=== PATIENT | male | born 2000 | race African-American/Black ===

== ENCOUNTER 2024-12-30 19:37 | Emergency (ER) | payer BC, SELFPAY ==
--- NOTE | ~2024-12-30 | XR_ITS ---
CLINICAL HISTORY: sob, hx asthma 2 view chest x-ray Comparison: None Findings: Lungs are clear without acute infiltrates. No pneumothorax. Heart size normal. No acute bony abnormalities. Impression: No acute processes This document has been electronically signed by: Bruce Renee MD on 12/30/2024 20:28:02
--- NOTE | ~2024-12-30 | CT_ITS ---
CLINICAL HISTORY: ? right pertons abscess vs cellulits CT soft tissue neck with contrast Comparison: None Findings: The visualized intracranial contents are unremarkable. There is hypertrophy of the adenoids and palatine tonsils. In the deep right palatine tonsil there is an irregular area of heterogeneous hypodensity measuring up to 3.2 x 3 x 1.6 cm. Right parapharyngeal fat induration. No prevertebral fluid. Prominent lingual tonsils. Salivary glands are unremarkable. No sialoliths. Thyroid gland is unremarkable. Visualized lung apices are clear. No acute fracture or dislocation. IMPRESSION: 1. Heterogeneous right deep palatine tonsil abscess. 2. Hypertrophied lymphoid tissue likely due to acute infection. This document has been electronically signed by: Pat Melo MD on 12/31/2024 02:11:41
[2024-12-30 19:52] VITALS: BP 127/77; PULSE 74; RESP 16; TEMP 36.8; O2SAT 100; BMI 18.7
--- NOTE | 2024-12-30 19:54 | ED_ITS ---
HPI - General Adult General Chief complaint: General Medical Stated complaint: sob Time Seen by Provider: 12/31/24 00:10 History of Present Illness ED Provider: Deshaun SANTIAGO narrative: The patient is a 24-year-old male who has had a sore throat for about 10 days. Six days ago he went to the emergency room at [facility] where he was diagnosed with a probable viral pharyngitis. [place] [id number]. He was given a dose of dexamethasone and was placed on penicillin. He has been taking the penicillin but he has had worsening pain in the left side of the back of his throat that he feels interferes with his breathing. He therefore feels short of breath but he thinks this is because of the swelling in his throat. He has pain on the right side of the back of his throat and on the right side of his neck. He has not had a fever. Related Data Previous Rx's ?Medication ?Instructions ?Recorded acetaminophen 500 mg capsule 1,000 mg (2 x 500 mg) PO Q8H PRN 12/31/24 fever or pain #14 caps amoxicillin 875 mg-potassium 1 tab PO BID #20 tabs 12/31/24 clavulanate 125 mg tablet ibuprofen 400 mg tablet 400 mg PO Q6H PRN pain #14 tabs 12/31/24 Allergies Allergy/AdvReac Type Severity Reaction Status Date / Time No Known Allergies Allergy Verified 12/30/24 19:56 Review of Systems 2 Review of Systems: Yes all other systems are reviewed and are negative PMFSH Social History Social History Smoked in Last 30 Days: No Use of substances other than those prescribed or required for medical reasons: No Advance Directives: No Advance Directives Information Provided: No Do you have a plan to hurt others: No Plan Physical Exam ED Vital Signs: Vital Signs - 24 hr 12/30/24 19:52 12/30/24 21:09 12/30/24 23:19 Temperature 98.2 F 98.4 F Pulse Rate 74 61 Respiratory Rate 16 20 16 Blood Pressure 127/77 120/77 Pulse Oximetry 100 99 Oxygen Delivery Method Room Air Room Air BMI result Body Mass Index 18.7 Const Other: The patient is a thin 24-year-old male who was awake and alert. He has a muffled voice but is able to speak fairly clearly. He is handling his secretions well. He does not seem to have obvious trismus. He is pleasant and cooperative. HENMT Other: The patient has a lot of swelling to the right soft palate with some deviation of the uvula. There is some exudate present. There was no trismus. Eyes General: appearance normal, both eyes and all related structures Neck Other: The patient has tenderness in the region of the right jugulodigastric lymph node. There was no tenderness on the left side of the neck. No left-sided adenopathy. Resp Effort & Inspection: normal respiratory effort Auscultation: clear to auscultation bilaterally Cardio Rate: regular rate Rhythm: regular rhythm Heart sounds: S1 normal heart sound present and S2 normal heart sound present GI Other: Abdomen is soft and nontender Skin Other: Skin is dry and unremarkable Neuro Other: The patient is awake and alert with a normal mental status. He has some mild muffling of his voice but his cranial nerves are intact. He moves his extremities normally and appropriately. He is nontoxic. Extrem Other: No peripheral edema Course Course Course Narrative: 12/30/241954 ALESHIA Dominguez This is a Rapid Medical Examination (RME) performed by Bryce Garcia PA-C in triage. Full HPI, ROS, assessment and treatment plan per primary provider in the Main ED. Hx: 24 yo M hx asthma here w/ mom for eval of difficulty breathing, sore throat, decreased PO inake. pt reports recent admission at [facility] - unclear diagnosis. dc home w/ PCN. symptoms worsening. PE/vitals: Muffled voice. Noted swelling to right tonsil with mild deviation of the uvula to the left. Plan: viral/strep swabs, cxr, labs floor covering printer aware. patient being brought back to main ED. Records requested from [facility]. Medications Administered Discontinued Medications Generic Name Dose Route Start Last Admin Trade Name Freq PRN Reason Stop Dose Admin Ceftriaxone Sodium 2 gm 12/31/24 02:50 12/31/24 02:57 Ceftriaxone Sodium 2 Gm Vial IVPUSH 12/31/24 02:51 2 gm ONCE ONE Administration Dexamethasone Sodium Phosphate 10 mg 12/31/24 00:31 12/31/24 00:55 Dexamethasone Sod Phosphate 10 Mg/Ml Vial IVPUSH 12/31/24 00:32 10 mg ONCE ONE Administration Ampicillin Sodium/Sulbactam 100 mls @ 200 mls/hr 12/31/24 00:31 12/31/24 01:41 Sodium 3 gm/ Sodium Chloride IV 12/31/24 01:00 Infused ONCE ONE Infusion Sodium Chloride 1,000 mls @ 999 mls/hr 12/31/24 00:45 12/31/24 02:01 Ns IV 12/31/24 01:45 Infused .Q1H1M BELLE Infusion Iohexol 60 ml 12/31/24 00:56 12/31/24 00:56 Iohexol 350 Mg/Ml 100 Ml Infus..Btl IV 12/31/24 00:57 60 ml ONCE ONE Administration Ketorolac Tromethamine 10 mg 12/31/24 00:31 12/31/24 00:54 Ketorolac Tromethamine 15 Mg/Ml Vial IVPUSH 12/31/24 00:32 10 mg ONCE ONE Administration Lidocaine HCl 1 appl 12/31/24 02:18 12/31/24 02:52 Lidocaine Hcl 4 % Fsecrj-E-Cod 4 Ml TOPICAL 12/31/24 02:19 1 appl ONCE ONE Administration Lidocaine/Epinephrine 10 ml 12/31/24 01:18 12/31/24 02:51 Lidocaine Hcl 1%/Epi 1:100,000 20 Ml Vial INFILTRATI 12/31/24 01:19 Not Given ONCE ONE Procedures Abscess I/D Site: oral (Right peritonsillar abscess) Side (if applicable): right Local Anesthetic: lidocaine 1% Amount of anesthesia used (mL): 2.5 Technique: needle aspiration and incised with blade Amount of fluid expressed (mL): 4 Sent for culture/gram staining?: No Irrigation: No Packing used?: none Complications: other (The patient tolerated the procedure well) Medical Decision Making Medical Decision Making MDM Narrative: The patient is a 24-year-old male who was seen at [facility] for a sore throat. [place] [id number]. He had a negative strep. He was placed on penicillin. He had received a dose of dexamethasone in the emergency room at [facility]. Since then he has had worsening pain in the right side of his throat and a muffling of his voice. Clinically the patient seems to have a probable peritonsillar abscess. He has tenderness in the region of the right jugulodigastric node. He has no trismus. The patient has a negative Monospot and a negative rapid strep. I proposed an attempt at draining what I assumed was a peritonsillar abscess. The patient was very apprehensive about such procedure. I therefore obtained a CT scan to make sure that there might be a drainable collection. The CT scan was read as showing a ?heterogeneous right deep palatine tonsil abscess. ? Dimensions of the heterogeneous hypodensity was 3.2 cm x 3 cm x 1.6 cm. Ultimately I was able to persuade the patient to allow me to attempted drainage procedure. Topical lidocaine was administered 1st. I then used a 30 gauge needle to inject 1% lidocaine into the mucosa of the right soft palate. I then made a few passes with a 30 gauge needle and was able to aspirate some pus. I then made an incision with a 11. Blade at the site where I had aspirated some pus. Unfortunately when it made the incision there was not a dramatic knox of pus. I probed the incision with a Mary Kay and was able to release some additional pus although I did not achieve the free flow of pus that I hoped to. I then administered some additional lidocaine slightly lower and laterally to the 1st incision. I then again passed an 18 gauge needle to try to aspirate pus. I aspirated only a small amount of pus and did not make a 2nd incision. At that point the patient was not willing to tolerate any additional attempts. He was feeling somewhat better and was now able to swallow much better he said. The patient received 10 mg of IV dexamethasone and 3 g of Unasyn in the emergency room. He will be discharged on Augmentin. He will be given contact information for ENT practices. He should return if worse or possibly go to [facility] or [facility] as they probably have better ENT coverage. He is encouraged to get a primary care doctor. Lab Data 12/30/24 20:05 12/30/24 20:05 Labs: Lab Results 12/30/24 12/30/24 Range/Units 20:05 21:03 WBC 12.7 H (4.8-10.8) X10*3/uL RBC 5.05 (4.60-5.80) X10*6/uL Hgb 16.0 (14.0-18.0) g/dl Hct 45.2 (42.0-52.0) % MCV 89.5 (80.0-98.0) fL MCH 31.7 (27.0-33.0) pg MCHC 35.4 (31.0-36.0) g/dl RDW 11.9 (11.0-16.0) % Plt Count 271 (160-400) X10*3/uL MPV 9.5 (9.4-12.4) fL Immature Gran % (Auto) Cancelled Neut % (Auto) Cancelled Lymph % (Auto) Cancelled [place] % (Auto) Cancelled Eos % (Auto) Cancelled Baso % (Auto) Cancelled Lymph # (Auto) Cancelled [place] # (Auto) Cancelled Eos # (Auto) Cancelled Baso # (Auto) Cancelled Abs Immat Gran (auto) Cancelled Absolute Neuts (auto) Cancelled Absolute Nucleated RBC 0.000 (0.0-0.012) X10*3/uL Nucleated RBC % (auto) 0.0 (0.0-0.2) /100WBC Neutrophils % (Manual) 54 (45-73) % Band Neutrophils % 1 L (3-5) % Lymphocytes % (Manual) 15 L (20-40) % Atypical Lymphs % (Man) 7 H (0-6) % Monocytes % (Manual) 17 H (2-11) % Eosinophils % (Manual) 3 (0-4) % Basophils % (Manual) 3 H (0-2) % Abs Neuts (Manual) 7.0 (2.0-8.3) X10*3/uL Lymphocytes # (Manual) 1.9 (1.2-4.9) X10*3/uL Atyp Lymphs # (Manual) 0.9 x10*3/uL Monocytes # (Manual) 2.2 H (0.1-1.2) X10*3/uL Eosinophils # (Manual) 0.4 (0.0-0.4) X10*3/uL Basophils # (Manual) 0.4 H (0.0-0.2) X10*3/uL Platelet Estimate NORMAL (NORMAL) Large Platelets PRESENT Plt Morphology Comment NOTED RBC Morphology NOTED Polychromasia 1+ (0-2) /OIF Smear Tech's Comments MANUAL DIFF Sodium 144 (135-145) mmol/L Potassium 3.6 (3.3-5.1) mmol/L Chloride 104 (96-108) mmol/L Carbon Dioxide 29 (22-29) mmol/L Anion Gap 15 (12-20) BUN 16 (9-16) mg/dL Creatinine 1.12 (0.5-1.4) mg/dL Estim Creat Clear Calc 90.0 Estimated GFR > 60 Random Glucose 121 H (60-115) mg/dL Calcium 10.5 H (8.4-10.2) mg/dL Total Bilirubin 0.6 (0.0-1.0) mg/dL AST 30 (5-37) U/L ALT 32 (0-40) U/L Alkaline Phosphatase 83 (39-117) U/L C-Reactive Protein 18.71 H (< or = 0.50) mg/dL Total Protein 8.9 H (6.5-8.0) g/dL Albumin 4.5 (3.5-5.0) g/dL Monoscreen Negative (Negative) Influenza Type A (PCR) NEGATIVE (Negative) Influenza Type B (PCR) NEGATIVE (Negative) RSV RNA Qual (PCR) NEGATIVE (Negative) SARS-CoV-2 RNA (RT-PCR) NEGATIVE (Negative) S. pyogenes GrpA BETO Negative (Negative) Discharge Plan Discharge Clinical Impression: Peritonsillar abscess Patient Disposition: Home, Self-Care Instructions: Peritonsillar Abscess (ED) Additional Instructions: I succeeded in draining some pus from your peritonsillar abscess. Please rock picker the prescription for the amoxicillin/clavulanate later this morning and take a dose later this morning and then another one in the evening. Continue to take this antibiotic 2 times a day until done. You may use ibuprofen and acetaminophen as needed for pain. Warm salt water rinses may be helpful too. Please contact the ENT offices (see the provided contact information) in the morning to see if you can arrange a follow up appointment soon for re- evaluation. Also please work on getting a primary care doctor. If you feel significantly worse you should return to an emergency room. [facility] and [facility] have better ENT coverage than this hospital. Prescriptions: New amoxicillin-pot clavulanate 875-125 mg tablet 1 tab PO BID Qty: 20 0RF ibuprofen 400 mg tablet 400 mg PO Q6H PRN (Reason: pain) Qty: 14 0RF acetaminophen 500 mg capsule 1,000 mg PO Q8H PRN (Reason: fever or pain) Qty: 14 0RF Referrals: [facility] [Provider Group] (Right sided peritonsillar abscess) [facility] [Physician] - (right sided peritonsillar abscess) Stand Alone Forms: Work/School Release Print Language: Haitian
[2024-12-30 20:21] LABS: Hematocrit 45.2 % (42.0-52.0); Mean Corpuscular HGB Conc 35.4 g/dl (31.0-36.0); Mean Corpuscular Hemoglobin 31.7 pg (27.0-33.0); Mean Corpuscular Volume 89.5 fL (80.0-98.0); Mean Platelet Volume 9.5 fL (9.4-12.4); Platelet Count 271 X10*3/uL (160-400); Red Blood Count 5.05 X10*6/uL (4.60-5.80); Red Cell Distribution Width 11.9 % (11.0-16.0); White Blood Count 12.7 X10*3/uL (4.8-10.8)
[2024-12-30 20:23] LABS: IDNOW Serial# 55D5AD1C; Strep A Nucleic Acid Negative (Negative)
[2024-12-30 20:30] LABS: Alanine Aminotransferase 32 U/L (0-40); Albumin Level 4.5 g/dL (3.5-5.0); Alkaline Phosphatase 83 U/L (39-117); Anion Gap 15 (12-20); Aspartate Amino Transferase 30 U/L (5-37); Bilirubin Total 0.6 mg/dL (0.0-1.0); Blood Urea Nitrogen 16 mg/dL (9-16); C Reactive Protein 18.71 mg/dL (< or = 0.50); Calcium 10.5 mg/dL (8.4-10.2); Carbon Dioxide 29 mmol/L (22-29); Chloride 104 mmol/L (96-108); Estimated Glomerular Filt Rate > 60; Glucose Random 121 mg/dL (60-115); Potassium 3.6 mmol/L (3.3-5.1); Sodium 144 mmol/L (135-145); Total Protein 8.9 g/dL (6.5-8.0)
[2024-12-30 20:32] LABS: SLIDE REVIEW MANUAL DIFF
[2024-12-30 20:39] LABS: Atypical Lymph Absolute Manual 0.9 x10*3/uL; Atypical Lymphs Percent Manual 7 % (0-6); Band Neutrophils Percent 1 % (3-5); Basophils Abs Manual 0.4 X10*3/uL (0.0-0.2); Basophils Percent Manual 3 % (0-2); Eosinophils Absolute Manual 0.4 X10*3/uL (0.0-0.4); Eosinophils Percent Manual 3 % (0-4); Lymphocytes Absolute Manual 1.9 X10*3/uL (1.2-4.9); Lymphocytes Percent Manual 15 % (20-40); Monocytes Absolute Manual 2.2 X10*3/uL (0.1-1.2); Monocytes Percent Manual 17 % (2-11); Neutrophils Percent Manual 54 % (45-73)
[2024-12-30 20:40] LABS: RBC Morphology NOTED
[2024-12-30 20:42] LABS: Large Platelet PRESENT; Platelet Estimate NORMAL (NORMAL); Platelet Morphology Comment NOTED; Polychromasia 1+ (0-2) /OIF
[2024-12-30 20:50] LABS: Influenza A PCR NEGATIVE (Negative); Influenza B PCR NEGATIVE (Negative); Resp Syncy Virus RNA Qual PCR NEGATIVE (Negative); SARS COV2 PCR INHOUSE NEGATIVE (Negative)
[2024-12-30 21:09] VITALS: RESP 20
[2024-12-30 21:44] LABS: Monotest Negative (Negative)
[2024-12-30 23:19] VITALS: BP 120/77; PULSE 61; RESP 16; TEMP 36.9; O2SAT 99
[2024-12-31] MEDS: 0.9 % Sodium Chloride 1,000 ML 999 ML IV (00:54)
[2024-12-31] MEDS: Ampicillin Sodium/Sulbactam Na 3 GM in 0.9 % Sodium Chloride 100 ML IV (00:54)
[2024-12-31] MEDS: Ketorolac Tromethamine 15 MG/ML VIAL 10 MG IVPUSH (00:54)
[2024-12-31] MEDS: dexAMETHasone sod phosphate 10 MG/ML VIAL IVPUSH (00:55)
[2024-12-31] MEDS: iohexoL 350 MG/ML 100 ML INFUS..BTL 60 ML IV (00:56)
[2024-12-31] MEDS: Lidocaine HCl 4 % Laryng-O-Jet 4 ML 1 APPL TOPICAL (02:52)
[2024-12-31] MEDS: cefTRIAXone sodium 2 GM VIAL IVPUSH (02:57)
[2024-12-31 03:28] VITALS: BP 120/77; PULSE 61; RESP 16; TEMP 36.9; O2SAT 99
== END 2024-12-31 03:34 | disposition home or self-care (01) ==
PROVIDERS: Physician Assistant Medical; Emergency Provider Emergency Medicine
DX: J36 Peritonsillar abscess (principal); Z03.818 Encounter for observation for suspected exposure to other biological agents ruled out
CPT/HCPCS: 0241U; 36415; 70491; 71046; 80053; 85007; 85027; 86140; 86308; 87651; 96361; 96374; 96375; 99284; J0295; J0696; J1100; J1885; Q9967

== ENCOUNTER → 2024-12-30 19:50 | Outpatient (BNV) | payer SELFPAY | PROVIDERS: Visit Provider Radiology Diagnostic Radiology | DX: J36 Peritonsillar abscess (principal); R59.9 Enlarged lymph nodes, unspecified | CPT/HCPCS: 71046 ==

== ENCOUNTER → 2024-12-31 00:33 | Outpatient (BNV) | payer BC, SELFPAY | PROVIDERS: Emergency Provider Emergency Medicine; Visit Provider Radiology Diagnostic Radiology | DX: J36 Peritonsillar abscess (principal); R59.0 Localized enlarged lymph nodes | CPT/HCPCS: 70491 ==